=== PATIENT | female | born 1970 | race Two or more races ===

== ENCOUNTER 2025-02-03 10:23 | Emergency (ER) | payer OTHER ==
[~2025-02-03] VITALS: Ht 152.4 cm; Wt 64.4 kg
[2025-02-03 10:47] VITALS: BP 143/92; O2SAT 97
[2025-02-03] MEDS ORDERED: VALACYCLOVIR1000 MG PO (11:54)
[2025-02-03] MEDS ORDERED: ACETAMINOPHEN500 M1 PO (11:54)
[2025-02-04] MEDS ORDERED: COZAAR25 MG (18:45)
[2025-02-04] MEDS ORDERED: CIPRO500 MG PO (19:09)
== END 2025-02-03 12:09 | disposition home or self-care (01) ==
LOC: ER 11:01
DX: J02.8 Acute pharyngitis due to other specified organisms (principal); B00.89 Other herpesviral infection; Z88.8 Allergy status to other drugs, medicaments and biological substances

== ENCOUNTER 2025-02-04 18:07 | Emergency (ER) | payer OTHER ==
[~2025-02-04] VITALS: Ht 160 cm; Wt 64.4 kg
[~2025-02-04 18:07] MED LIST: ACETAMINOPHEN500 M1 PO; VALACYCLOVIR1000 MG PO
[2025-02-04] MEDS ORDERED: COZAAR25 MG (18:45)
[2025-02-04] MEDS ORDERED: CIPRO500 MG PO (19:09)
== END 2025-02-04 19:23 | disposition home or self-care (01) ==
LOC: ER 18:07
DX: J02.8 Acute pharyngitis due to other specified organisms (principal); B96.89 Other specified bacterial agents as the cause of diseases classified elsewhere; R07.0 Pain in throat; I10 Essential (primary) hypertension; Z88.8 Allergy status to other drugs, medicaments and biological substances